=== PATIENT | female | born 1995 | race Caucasian/White ===

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

== ENCOUNTER → 2017-07-28 | Outpatient (CLI) | payer OTHER ==
[2017-07-28 09:23] LABS: Glucose 87 mg/dL (74-99)
[2017-07-28 09:32] LABS: HCG,Quantitative Serum <2.4 mIU/mL; T4, Free (Free Thyroxine) 2.14 ng/dL (0.78-2.19)
[2017-07-28 17:24] LABS: Insulin Level 20.2 mIU/mL (3.0-25.0)
== END | disposition home or self-care (01) ==
LOC: LABWHC1 08:06
PROVIDERS: ATTEND Internal Medicine
DX: N91.4 Secondary oligomenorrhea (principal)
CPT/HCPCS: 36415; 82157; 82670; 82947; 83001; 83002; 83498; 83525; 84146; 84403; 84439; 84443; 84702

== ENCOUNTER → 2021-03-26 | Outpatient (CLI) | payer OTHER ==
--- NOTE | 2021-03-26 17:46 | CONS ---
CONSULTATION DATE OF SERVICE: 03/26/2021 This 25-year-old lady has been evaluated in Sleep Center for significant excessive daytime sleepiness. HISTORY OF PRESENT ILLNESS/SLEEP-WAKE EVALUATION: Patient's usual sleep schedule on weekdays is from 9 p.m. to 5:30 a.m., on weekends from 11 p.m. to 10 a.m. No problems with falling asleep, although she reads in her bedroom. She usually sleeps on the side position. She does not snore. She does not wake up from sleep; usually sleeps through, but has episodes of sleeptalking and sleepwalking. No history of nocturia. No episodes of gasping for air. In the morning the patient wakes up tired, falling asleep during the day, has problems with memory. Positive history of hypnagogic hallucinations. She is ready to take naps any time. Usually no vivid dreams during naps. Usually she does not feel refreshed after naps. No history of sleep paralysis or cataplexy, but sometimes she does feel some weakness in the muscles. [place] Sleepiness Scale is in very high range at 16. She feels sleepiness. She sometimes even feels sleepiness while driving. PAST MEDICAL HISTORY: Positive for James-Danlos syndrome, irritable bowel syndrome, hypothyroidism. PAST SURGICAL HISTORY: Surgical treatment of pituitary tumor. MEDICATIONS: 1. Levbid once a day. 2. Synthroid once a day. 3. Flexeril as needed. 4. Supplements, multivitamins, vitamin D and omega-3, turmeric. SOCIAL HISTORY: Negative for smoking. Alcohol consumption rarely. FAMILY HISTORY: Positive for obstructive sleep apnea in her father, fibromyalgia, hyperlipidemia, hypertension, mental illness, diabetes. REVIEW OF SYSTEMS: Significant excessive daytime sleepiness. No fevers. No double vision. No recent chest pain. No shortness of breath. No abdominal pain. No bleeding episodes. No blood in the urine. No seizure episodes. PHYSICAL EXAMINATION: GENERAL: Pleasant lady without distress. VITAL SIGNS: BP 120/77, HR 78, RR 15, height 5 feet 4 inches, weight 207, body mass index 35.5, temperature 98.4, oxygen saturation at room air 79%. HEENT: PERRLA, EOMI, evaluation of oropharynx showed tongue protrudes midline. Position of soft palate Mallampati II. NECK: Supple, no JVD. Thyroid is not palpable. Neck measures 14 inches in circumference. LUNGS: Clear to percussion and to auscultation. Good air exchange. No wheezing or rhonchi. HEART: S1, S2 regular. No murmurs, gallops, or rubs. ABDOMEN: Slightly obese. EXTREMITIES: No clubbing or cyanosis. [place] flexible joints. METAL PUNCH PRESS OPERATOR: Awake, alert, and oriented X3. Cranial nerves 2 to 7 intact. There is no fasciculation or atrophy. noted. No focal deficits observed. IMPRESSION: 1. Significant excessive daytime sleepiness. [place] Sleepiness Scale increased to 16. 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 2. Hypothyroidism. 3. Irritable bowel syndrome. 4. History of James-Danlos syndrome. 5. Status post pituitary tumor removed. 6. History of sleepwalking. PLAN: 1. Polysomnography with multiple sleep latency test for objective evaluation of patient's symptoms of excessive daytime sleepiness and also to check for any abnormalities of sleep, including respiration and movements. 2. Following plan after reviewing results of sleep studies. 3. Sleep hygiene with regular time in bed for 7-1/2 to 8 hours. 4. Significant precautions related to driving. No driving if feeling any sleepiness. Patient promised to follow recommendations. 5. Watching and losing weight. Thank you very much for referring this patient for consultation. Sincerely, Tigre Alfredo MD, PhD, FAASM Diplomat of [employer] [employer] Sleep Medicine Board of [employer] Mud Engineer of [facility] [place] MMODL / IJN: [id number] /
== END | disposition home or self-care (01) ==
LOC: SLEEP 15:54
PROVIDERS: ATTEND Internal Medicine
DX: G47.33 Obstructive sleep apnea (adult) (pediatric) (principal); E03.9 Hypothyroidism, unspecified; K58.9 Irritable bowel syndrome, unspecified; Z87.898 Personal history of other specified conditions
CPT/HCPCS: 99211

== ENCOUNTER → 2021-08-12 | Outpatient (CLI) | payer OTHER ==
--- NOTE | 2021-08-12 13:46 | SFUN ---
SLEEP CENTER FOLLOW UP NOTE DATE OF SERVICE: 08/12/2021 This 25-year-old lady has been followed in Sleep Center for treatment of possible narcolepsy causing significant excessive daytime sleepiness, which has been confirmed by multiple sleep latency test with short sleep latency, only 4.5 minutes on average. The patient was started on treatment with Adderall 5 mg twice a day. With this regimen of medication, she still continues to feel sleepiness. [place] Sleepiness Scale increased to 11. She still takes naps during the daytime. No side effects of medication. MEDICATIONS: 1. Synthroid 75 mcg once a day. 2. Flexeril 10 mg as needed. 3. Adderall 10 mg twice a day. 4. 0.5 mg once a week. PHYSICAL EXAMINATION: GENERAL: Pleasant patient in no distress. VITAL SIGNS: BP 119/83, HR 78, RR 16, weight 213.4, temperature 97.8, oxygen saturation at room air 100%. The patient's weight increased by 4 pounds since previous visit. HEENT: PERRLA, EOMI, evaluation of oropharynx showed tongue protrudes midline. NECK: Supple, no JVD. Thyroid is not palpable. LUNGS: Clear to percussion and to auscultation. Good air exchange. No wheezing or rhonchi. HEART: S1, S2 regular. No murmurs, gallops, or rubs. ABDOMEN: Soft and nontender. Bowel sounds are present. No organomegaly appreciated. EXTREMITIES: No clubbing or cyanosis. CARE NAVIGATOR: Awake, alert, and oriented X3. Cranial nerves 2 to 7 intact. There is no fasciculation or atrophy. noted. No focal deficits observed. IMPRESSION: 1. Possible narcolepsy with extremely short mean sleep latency by MSLT of 4.5 minutes. Differential diagnosis includes idiopathic hypersomnia. 2. Hypothyroidism. 3. History of irritable bowel syndrome. 4. Status post pituitary tumor removed. 5. History of sleepwalking in the past. PLAN: 1. Patient will continue treatment with Adderall twice a day. Dose increased to 10 mg. 2. Sleep hygiene with regular time in bed for at least 8 hours. 3. Daytime naps permitted. 4. No driving if feeling any sleepiness. Thank you very much for allowing me to participate in the management of your patient. Sincerely, Tigre Alfredo MD, PhD, FAASM Diplomat of [place] [employer] Sleep Medicine Board of [place] [employer] Health Promotion Coordinator of [facility] [place] BATOOL / VALENTINO: [id number] /
== END | disposition home or self-care (01) ==
LOC: SLEEP 11:27
PROVIDERS: ATTEND Internal Medicine
DX: E03.9 Hypothyroidism, unspecified (principal); Z87.19 Personal history of other diseases of the digestive system; Z98.890 Other specified postprocedural states

== ENCOUNTER → 2021-12-09 | Outpatient (CLI) | payer OTHER ==
--- NOTE | 2021-12-09 14:44 | P.PN ---
Subjective DATE: 12/09/2021 FOLLOW UP VISIT. Patient returned to sleep center for follow-up visit related to treatment of significant excessive daytime sleepiness secondary to narcolepsy. Presently patient is on treatment with Adderall 15 mg in the morning and around 1 PM. On the second part of the day starting around 6 PM patient feels significantly sleepy and this is a time when she goes back from her work. She'll [place] Sleepiness Scale today is 8. She feels significant improvements. No any side effects of Adderall. . MEDICATIONS:1. Synthroid 75 g once a day 2. Flexeril 10 mg as needed 3. Adderall 15 mg 2 times a day During physical exam: GENERAL: A pleasant patient without any distress. VITAL SIGNS: BP 134/70, HR 69, RR 18 , weight 199.8, temperature 97.3, oxygen saturation at room air 99% . HEENT: PERRLA, EOMI. NECK: Supple. No JVD. LUNGS: Clear to percussion and to auscultation. Good air exchange. No wheezing or rhonchi. HEART: S1, S2 regular. ABDOMEN: Soft and nontender. EXTREMITIES: No clubbing or cyanosis. HOME PERFORMANCE CONSULTANT: Awake, alert, and oriented x3. No focal deficit. Impressions: 1. Possible narcolepsy with extremely short mean sleep latency by multiple sleep latency test of 4.5 minutes. Patient significantly improved to alertness during the day on Adderall presently still some sleepiness at the end of the day. 2 hypothyroidism 3 status post pituitary tumor removed 4. History of irritable bowel syndrome. 5. History of sleepwalking in the past. Plan: 1. Patient will continue treatment with Adderall 15 mg. We will increase time of taking medication to 3 times a day 8 AM, known time, and the 4 PM. 2. Sleep hygiene with regular time in bed for at least 8 hours. 3. Daytime naps permitted 4. Precautions related to driving. No driving if feel any sleepiness. Patient is aware about civil and criminal liability for unsafe driving, promised to follow recommendations. 5. Follow up visit in 4-6 months or earlier if patient has any problems. Thank you very much for allowing me to participate in the management of your patient. Tigre Alfredo MD, PhD, FAASM. Diplomat of [place] [employer], Sleep Medicine Board by [place] [employer] Hotel [employer] Floorperson of [facility] [place]
== END | disposition home or self-care (01) ==
LOC: SLEEP 13:58
PROVIDERS: ATTEND Internal Medicine
DX: E03.9 Hypothyroidism, unspecified (principal); Z98.890 Other specified postprocedural states; Z87.19 Personal history of other diseases of the digestive system
CPT/HCPCS: 99212

== ENCOUNTER → 2022-06-17 | Outpatient (CLI) | payer OTHER ==
--- NOTE | 2022-06-17 15:36 | P.PN ---
Subjective DATE: 06/17/2022 FOLLOW UP VISIT. Patient returned to sleep center for follow-up visit related to treatment of significant excessive daytime sleepiness secondary to narcolepsy. Presently patient is on treatment with Adderall 15 mg in the morning, in the middle of the day and if necessary 3rd tablet on the second part of the day. With this regimen patient is able to control her of alertness during the day. . [place] sleepiness scale is 7, which is in normal range. MEDICATIONS:1. Adderall 15 mg 3 times a day 2. Flexeril 10 mg as needed 3. Synthroid 75 g once a day During physical exam: GENERAL: A pleasant patient without any distress. VITAL SIGNS: BP 138/87, HR 84, RR 16 , weight 190, temperature 98.0, oxygen saturation at room air 99 . HEENT: PERRLA, EOMI. NECK: Supple. No JVD. LUNGS: Clear to percussion and to auscultation. Good air exchange. No wheezing or rhonchi. HEART: S1, S2 regular. ABDOMEN: Soft and nontender. EXTREMITIES: No clubbing or cyanosis. BROKERAGE COORDINATOR: Awake, alert, and oriented x3. No focal deficit. Impressions: 1. Narcolepsy (extremely short sleep latency to 4.5 minutes, but without sleep onset REM) differential diagnosis with idiopathic hypersomnia. Alertness is on control with Adderall 2. History of sleep walking in the past. 3. Status post pituitary tumor removed. 4. History of irritable bowel syndrome. Plan: 1. Patient will continue treatment with Adderall 15 mg up to 3 times a day 2. Sleep hygiene with regular time in bed for at least 8 hours. 3. Daytime naps permitted 4. Precautions related to driving. No driving if feel any sleepiness. Patient is aware about civil and criminal liability for unsafe driving, promised to follow recommendations. 5. Follow up visit in 4-6 months or earlier if patient has any problems. Thank you very much for allowing me to participate in the management of your patient. Tigre Alfredo MD, PhD, FAASM. Diplomat of [place] [employer], Sleep Medicine Board by [employer] [place] [employer] Press Shop Supervisor of [facility] [place]
== END ==
LOC: SLEEP 14:46
PROVIDERS: ATTEND Internal Medicine
DX: G47.419 Narcolepsy without cataplexy (principal); Z86.018 Personal history of other benign neoplasm; Z87.19 Personal history of other diseases of the digestive system

== ENCOUNTER → 2022-12-23 | Outpatient (CLI) | payer OTHER ==
--- NOTE | 2022-12-23 16:23 | P.PN ---
Subjective DATE: 12/23/2022 FOLLOW UP VISIT. Patient returned to sleep center for follow-up visit related to treatment of significant excessive daytime sleepiness secondary to narcolepsy. Patient is on treatment with Adderall 15 mg 2-3 times a day. Patient may have problems with sleepiness in the morning. She has to drive in about 30 minutes after taking medication and may fill sleepiness at that moment. During other parts of the day she feels well. . [place] sleepiness scale is 12. MEDICATIONS:1. Adderall 15 mg 3 times a day 2. Flexeril 10 mg as needed 3. Synthroid 75 g once a day During physical exam: GENERAL: A pleasant patient without any distress. VITAL SIGNS: BP 136/91, HR 97, RR 16 , weight 191.4, temperature 98.1, oxygen saturation at room air 100% . HEENT: PERRLA, EOMI. NECK: Supple. No JVD. LUNGS: Clear to percussion and to auscultation. Good air exchange. No wheezing or rhonchi. HEART: S1, S2 regular. ABDOMEN: Soft and nontender. EXTREMITIES: No clubbing or cyanosis. DEBIT AGENT: Awake, alert, and oriented x3. No focal deficit. Impressions: 1. Narcolepsy, mean sleep latency by MSLT 4.5 minutes without sleep onset REM., Differential diagnosis with idiopathic hypersomnia 2. History of sleep walking in the past. 3. Status post pituitary tumor removed. 4. History of irritable bowel syndrome. Plan: 1. Patient will continue treatment with Adderall 15 mg 3 tablets a day. Patient may increase morning dose to one half tablet and try to take medication as early as possible. 2. Sleep hygiene with regular time in bed for at least 8 hours. 3. Daytime naps permitted 4. Precautions related to driving. No driving if feel any sleepiness. Patient is aware about civil and criminal liability for unsafe driving, promised to follow recommendations. 5. Follow up visit in 4-6 months or earlier if patient has any problems. Thank you very much for allowing me to participate in the management of your patient. Tigre Alfredo MD, PhD, FAASM. Diplomat of [place] [employer], Sleep Medicine Board by [place] Stained Glass Glazier of [facility] [place]
== END ==
LOC: 3 N SLEEP 15:12
PROVIDERS: ATTEND Internal Medicine
DX: G47.33 Obstructive sleep apnea (adult) (pediatric) (principal); G47.419 Narcolepsy without cataplexy; K58.9 Irritable bowel syndrome, unspecified; F51.3 Sleepwalking [somnambulism]
CPT/HCPCS: 99212